=== PATIENT | female | born 1980 | race Caucasian/White ===

== ENCOUNTER 2016-08-20 14:00 | Emergency (ER) | payer OTHER ==
--- NOTE | 2016-08-20 14:59 | ED CLINICAL REPORT ---
Clinical Report - Physicians/Mid Levels [facility] [address] [place] [address] 08/20/2016 14:01 Patient: MARC COLLINS Time Seen: 14:04 Aug 20 2016. Arrived- By private vehicle. Historian- patient. CPT: ER phys charges level 3 plus (#252425). Up to 2.5 cm simple scalp, neck (#[id number]). HISTORY OF PRESENT ILLNESS Location of injuries- head. Chief Complaint: INJURY TO HEAD. The injury occurred just prior to arrival. The patient sustained a single moderate blow (metal staple gun.). Occurred at home. The patient complains of mild pain. The patient sustained a blow to the head. No neck pain or loss of consciousness. Not dazed. REVIEW OF SYSTEMS No numbness, nausea or difficulty breathing. She sustained a single small skin laceration to the scalp. All systems otherwise negative, except as recorded above. PAST HISTORY See nurses notes. Tetanus immunization status is up-to-date. ADDITIONAL NOTES The nursing notes have been reviewed. PHYSICAL EXAM Vital Signs: 08/20/2016 14:07 BP: 108/68. HR: 94. RR: 16. O2 saturation: 97%. Pain level now: 4/10. Appearance: Alert. No acute distress. Head: Vertex: mild tenderness and swelling and subcutaneous 1.0 cm laceration of the posterior aspect of the vertex (bleeding will not stop.). Eyes: Pupils equal, round and reactive to light. EOM intact. Neck: Painless ROM. Neck non-tender. Skin: Skin warm. Normal skin color. Extremities: Extremities atraumatic. Neuro: Oriented X 3. Mood/affect normal. Speech normal. No motor deficit. Normal gait. No sensory deficit. Reflexes normal. PROGRESS AND PROCEDURES Laceration Repair: Location: scalp. Length: 1 cm. Complexity: simple (local anesthesia used and sutured). Wound depth/shape- subcutaneous and linear. Wound is clean. Distal neuro/vascular/tendon status normal. Anesthesia provided using 2% lidocaine with epi. Prepped with Hibiclens. Wound explored and irrigated extensively with normal saline. Closure of skin: interrupted 4-0 (1 sutures). Post-procedure: she is stable and there are no complications. Bleeding is controlled and neuro-vascular status is intact distal to the wound. Dressing applied. Tetanus immunization up-to-date. Estimated blood loss: 1 mL. Patient/family counseled. Disposition: Discharged. Condition: stable. CLINICAL IMPRESSION Single deep laceration to the scalp.No foreign body present. Single contusion to the scalp. INSTRUCTIONS Protect wound and keep wound area clean. Change dressing twice daily. Keep wounds dry. You may wash wounds briefly, then dry. Apply neosporin twice daily. Sutures should be removed in seven days. Warnings: GENERAL WARNINGS: Return or contact your physician immediately if your condition worsens or changes unexpectedly, if not improving as expected, or if other problems arise. OTC Medications: Acetaminophen (available over the counter): take according to label instructions. Follow-up: Follow up with your doctor in one week. Call for an appointment. Reason for referral: for suture removal if the RN does not do it. Understanding of the discharge instructions verbalized by patient. Discharge instructions reviewed with and understanding was verbalized by regional vice president life sales. (Electronically signed by Michael Arce MD 08/20/2016 15:36)
--- NOTE | 2016-08-20 14:59 | ED ORDER SUMMARY ---
..... Patient: MARC COLLISN OrderSheet [facility] VisitID: [id number] [address] [place] [address] 35y, F Registration Date/Time: 08/20/2016 ORDER SHEET Weight: 58.0 kg (stated) Allergies: None GENERAL ORDERS: Dress Wounds (14:54 08/20/2016 Augustin HERNANDEZ) ([facility] 15:02 Alexis Richter) (15:41 Shahana Richter) MEDICATION ORDERS: IV FLUIDS: ORDER SHEET NOTES: [Electronically signed by Michael Arce MD (15:36 08/20/2016)] [Electronically signed by Evangelina Landa R.N. (15:41 08/20/2016)] [Electronically locked/signed by Evangelina Landa R.N. (15:41 08/20/2016)]
--- NOTE | 2016-08-20 14:59 | ED ORDER SUMMARY ---
..... Patient: MARC COLLINS OrderSheet [facility] VisitID: [id number] [address] [place] [address] 35y, F Registration Date/Time: 08/20/2016 ORDER SHEET Weight: 58.0 kg (stated) Allergies: None GENERAL ORDERS: Dress Wounds (14:54 08/20/2016 Augustin HERNANDEZ) ([facility] 15:02 Alexis Richter) (15:41 Shahana Richter) MEDICATION ORDERS: IV FLUIDS: ORDER SHEET NOTES: [Electronically signed by Michael Arce MD (15:36 08/20/2016)] [Electronically signed by Evangelina Landa R.N. (15:41 08/20/2016)] [Electronically locked/signed by Evangelina Landa R.N. (15:41 08/20/2016)]
--- NOTE | 2016-08-20 14:59 | ED NURSING NOTES ---
Clinical Report - Nurses [facility] [address] [place] [address] 08/20/2016 14:01 Patient: MARC COLLINS TRIAGE Triage time 02:04. Acuity: LEVEL 4. Chief Complaint: INJURY TO HEAD. 14:15 08/20/16. Alert. No acute distress. SEPSIS SCREEN: Sepsis Screen. Negative (no infection suspected/documented). DEBBIE COMA SCORE: [place] Coma Scale. --14:15 Evangelina Landa R.N. 14:07 08/20/16. BP: 108/68. HR: 94. RR: 16. O2 saturation: 97%. Pain level now: 07/17. --14:15 Evangelina Landa R.N. 14:31 08/20/16. --14:31 Evangelina Landa R.N. 15:12 08/20/16. Temp: 97.8 F. --15:12 Evangelina Landa R.N. Weight: 58 kg stated. Height/Length: 61 inches Per Patient. BMI: 24.2. --14:15 Evangelina Landa R.N. Medications None. --15:11 Evangelina Landa R.N. Allergies None. --15:11 Evangelina Landa R.N. History Arrived by private vehicle. Historian: patient. Accompanied by spouse. Primary physician (No PCP). This occurred just prior to arrival. She sustained a laceration. Mechanism of injury: a blow. She has had neck pain. ( Patient reports that she has persistent neck pain, and "it's hard to tell if that's why my neck hurts". She reports pain "where my head and neck meet."). 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 PAST MEDICAL HX: Tetanus status: up-to-date. Immunizations: up-to-date. The patient has had a hysterectomy. Currently . SOCIAL HX: Never smoker. No alcohol use or drug use. FALL RISK ASSESSMENT: Fall risk assessment completed. No fall risk identified. NUTRITIONAL RISK ASSESSMENT: The nutritional risk assessment revealed no deficiencies. FUNCTIONAL ASSESSMENT: Functional assessment: no impairments noted. LEARNING NEEDS ASSESSMENT: The learning needs assessment revealed no barriers. SKIN INTEGRITY ASSESSMENT: Skin integrity risk assessment completed. No skin integrity risk identified. --14:15 Evangelina Landa R.N. ( Patient reports a staple gun fell on her head while she was working on her house.). --14:31 Evangelina Landa R.N. Interventions ID band on patient. To treatment room. --14:15 Evangelina Landa R.N. PHYSICAL ASSESSMENT 14:17 08/20/16. Ambulatory to room. GENERAL / NEURO / PSYCH: Alert. Oriented X 4. Appears in no acute distress. HEENT: Head: tenderness and laceration present in the left parietal area. Left parietal area: superficial 0.5 cm laceration with controlled bleeding. Pupils equal, round and reactive to light. EOM intact. Voice within normal limits. No swelling of head. No dental injury noted. Mucous membranes are pink. RESPIRATORY: Respirations not labored. CVS: Capillary refill less than 2 seconds. BACK: ROM normal to the neck and back. No vertebral point tenderness. SKIN: Skin is warm and dry. --14:18 Evangelina Landa R.N. NURSING PROGRESS NOTES Two patient identifiers checked. Call light placed in reach. Bed placed in lowest position. Brakes of bed on. Patient ready for evaluation- chart flagged and notification provided. --14:18 Evangelina Landa R.N. 15:08 08/20/16. --15:08 Evangelina Landa R.N. 15:08/20/16. BP: 98/67. HR: 84. RR: 16. O2 saturation: 99%. Temp: deferred. Pain level now: 06/16. --15:08 Evangelina Landa R.N. DISPOSITION / DISCHARGE 15:08/20/16. No learning barriers present. Discharge instructions provided and reviewed with the patient and spouse. Reviewed warnings. Treatments reviewed. Patient and spouse verbalized understanding. Written instructions provided in Romanian. The patient was discharged by the physician. She was discharged home and accompanied by spouse. She left the Emergency Department ambulatory and via private vehicle. Spouse driving. --15:09 Evangelina Landa R.N. 15:06 08/20/16. BP: 98/67. HR: 84. RR: 16. O2 saturation: 99%. Temp: deferred. Pain level now: 06/16. --15:09 Evangelina Landa R.N. Locked/Released at 08/20/2016 15:41 by Evangelina Landa R.N.
--- NOTE | 2016-08-20 14:59 | ED NURSING NOTES ---
Clinical Report - Nurses [facility] [address] [place] [address] 08/20/2016 14:01 Patient: MARC COLLINS TRIAGE Triage time 02:04. Acuity: LEVEL 4. Chief Complaint: INJURY TO HEAD. 14:15 08/20/16. Alert. No acute distress. SEPSIS SCREEN: Sepsis Screen. Negative (no infection suspected/documented). DEBBIE COMA SCORE: [place] Coma Scale. --14:15 Evangelina Landa R.N. 14:07 08/20/16. BP: 108/68. HR: 94. RR: 16. O2 saturation: 97%. Pain level now: 07/17. --14:15 Evangelina Landa R.N. 14:31 08/20/16. --14:31 Evangelina Landa R.N. 15:12 08/20/16. Temp: 97.8 F. --15:12 Evangelina Landa R.N. Weight: 58 kg stated. Height/Length: 61 inches Per Patient. BMI: 24.2. --14:15 Evangelina Landa R.N. Medications None. --15:11 Evangelina Landa R.N. Allergies None. --15:11 Evangelina Landa R.N. History Arrived by private vehicle. Historian: patient. Accompanied by spouse. Primary physician (No PCP). This occurred just prior to arrival. She sustained a laceration. Mechanism of injury: a blow. She has had neck pain. ( Patient reports that she has persistent neck pain, and "it's hard to tell if that's why my neck hurts". She reports pain "where my head and neck meet."). 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 PAST MEDICAL HX: Tetanus status: up-to-date. Immunizations: up-to-date. The patient has had a hysterectomy. Currently . SOCIAL HX: Never smoker. No alcohol use or drug use. FALL RISK ASSESSMENT: Fall risk assessment completed. No fall risk identified. NUTRITIONAL RISK ASSESSMENT: The nutritional risk assessment revealed no deficiencies. FUNCTIONAL ASSESSMENT: Functional assessment: no impairments noted. LEARNING NEEDS ASSESSMENT: The learning needs assessment revealed no barriers. SKIN INTEGRITY ASSESSMENT: Skin integrity risk assessment completed. No skin integrity risk identified. --14:15 Evangelina Landa R.N. ( Patient reports a staple gun fell on her head while she was working on her house.). --14:31 Evangelina Landa R.N. Interventions ID band on patient. To treatment room. --14:15 Evangelina Landa R.N. PHYSICAL ASSESSMENT 14:17 08/20/16. Ambulatory to room. GENERAL / NEURO / PSYCH: Alert. Oriented X 4. Appears in no acute distress. HEENT: Head: tenderness and laceration present in the left parietal area. Left parietal area: superficial 0.5 cm laceration with controlled bleeding. Pupils equal, round and reactive to light. EOM intact. Voice within normal limits. No swelling of head. No dental injury noted. Mucous membranes are pink. RESPIRATORY: Respirations not labored. CVS: Capillary refill less than 2 seconds. BACK: ROM normal to the neck and back. No vertebral point tenderness. SKIN: Skin is warm and dry. --14:18 Evangelina Landa R.N. NURSING PROGRESS NOTES Two patient identifiers checked. Call light placed in reach. Bed placed in lowest position. Brakes of bed on. Patient ready for evaluation- chart flagged and notification provided. --14:18 Evangelina Landa R.N. 15:08 08/20/16. --15:08 Evangelina Landa R.N. 15:08/20/16. BP: 98/67. HR: 84. RR: 16. O2 saturation: 99%. Temp: deferred. Pain level now: 06/16. --15:08 Evangelina Landa R.N. DISPOSITION / DISCHARGE 15:08/20/16. No learning barriers present. Discharge instructions provided and reviewed with the patient and spouse. Reviewed warnings. Treatments reviewed. Patient and spouse verbalized understanding. Written instructions provided in Latvian. The patient was discharged by the physician. She was discharged home and accompanied by spouse. She left the Emergency Department ambulatory and via private vehicle. Spouse driving. --15:09 Evangelina Landa R.N. 15:06 08/20/16. BP: 98/67. HR: 84. RR: 16. O2 saturation: 99%. Temp: deferred. Pain level now: 06/16. --15:09 Evangelina Landa R.N. Locked/Released at 08/20/2016 15:41 by Evangelina Landa R.N.
--- NOTE | 2016-08-20 14:59 | ED CLINICAL REPORT ---
Clinical Report - Physicians/Mid Levels [facility] [address] [place] [address] 08/20/2016 14:01 Patient: MARC COLLINS Time Seen: 14:04 Aug 20 2016. Arrived- By private vehicle. Historian- patient. CPT: ER phys charges level 3 plus (#803500). Up to 2.5 cm simple scalp, neck (#[id number]). HISTORY OF PRESENT ILLNESS Location of injuries- head. Chief Complaint: INJURY TO HEAD. The injury occurred just prior to arrival. The patient sustained a single moderate blow (metal staple gun.). Occurred at home. The patient complains of mild pain. The patient sustained a blow to the head. No neck pain or loss of consciousness. Not dazed. REVIEW OF SYSTEMS No numbness, nausea or difficulty breathing. She sustained a single small skin laceration to the scalp. All systems otherwise negative, except as recorded above. PAST HISTORY See nurses notes. Tetanus immunization status is up-to-date. ADDITIONAL NOTES The nursing notes have been reviewed. PHYSICAL EXAM Vital Signs: 08/20/2016 14:07 BP: 108/68. HR: 94. RR: 16. O2 saturation: 97%. Pain level now: 4/10. Appearance: Alert. No acute distress. Head: Vertex: mild tenderness and swelling and subcutaneous 1.0 cm laceration of the posterior aspect of the vertex (bleeding will not stop.). Eyes: Pupils equal, round and reactive to light. EOM intact. Neck: Painless ROM. Neck non-tender. Skin: Skin warm. Normal skin color. Extremities: Extremities atraumatic. Neuro: Oriented X 3. Mood/affect normal. Speech normal. No motor deficit. Normal gait. No sensory deficit. Reflexes normal. PROGRESS AND PROCEDURES Laceration Repair: Location: scalp. Length: 1 cm. Complexity: simple (local anesthesia used and sutured). Wound depth/shape- subcutaneous and linear. Wound is clean. Distal neuro/vascular/tendon status normal. Anesthesia provided using 2% lidocaine with epi. Prepped with Hibiclens. Wound explored and irrigated extensively with normal saline. Closure of skin: interrupted 4-0 (1 sutures). Post-procedure: she is stable and there are no complications. Bleeding is controlled and neuro-vascular status is intact distal to the wound. Dressing applied. Tetanus immunization up-to-date. Estimated blood loss: 1 mL. Patient/family counseled. Disposition: Discharged. Condition: stable. CLINICAL IMPRESSION Single deep laceration to the scalp.No foreign body present. Single contusion to the scalp. INSTRUCTIONS Protect wound and keep wound area clean. Change dressing twice daily. Keep wounds dry. You may wash wounds briefly, then dry. Apply neosporin twice daily. Sutures should be removed in seven days. Warnings: GENERAL WARNINGS: Return or contact your physician immediately if your condition worsens or changes unexpectedly, if not improving as expected, or if other problems arise. OTC Medications: Acetaminophen (available over the counter): take according to label instructions. Follow-up: Follow up with your doctor in one week. Call for an appointment. Reason for referral: for suture removal if the RN does not do it. Understanding of the discharge instructions verbalized by patient. Discharge instructions reviewed with and understanding was verbalized by mmd unit teacher. (Electronically signed by Michael Arce MD 08/20/2016 15:36)
--- NOTE | 2016-08-20 15:42 | ED DISCHARGE INSTRUCTIONS ---
Patient: MARC COLLINS General Instructions [facility] VisitID: [id number] [place] [address] 35y, F Registration Date/Time: 08/20/2016 Single deep laceration to the scalp.No foreign body present. Single contusion to the scalp. INSTRUCTIONS Protect wound and keep wound area clean. Change dressing twice daily. Keep wounds dry. You may wash wounds briefly, then dry. Apply neosporin twice daily. Sutures should be removed in seven days. Warnings: GENERAL WARNINGS: Return or contact your physician immediately if your condition worsens or changes unexpectedly, if not improving as expected, or if other problems arise. OTC Medications: Acetaminophen (available over the counter): take according to label instructions. Follow-up: Follow up with your doctor in one week. Call for an appointment. Reason for referral: for suture removal if the RN does not do it. Understanding of the discharge instructions verbalized by patient. Discharge instructions reviewed with and understanding was verbalized by concrete buster operator. ADDITIONAL INFORMATION Laceration (All Closures) Alaceration is a cut through the skin. This will usually require stitches (sutures) or hussain if it is deep. Minor cuts may be treated with a surgical tape closure orskin glue. Home care The following guidelines will help you care for your laceration at home: Extremity, face, or trunk wounds Keep the wound clean and dry. If a bandage was applied and it becomes wet or dirty, replace it. Otherwise, leave it in place for the first 24 hours. If stitches or hussain were used, clean the wound daily. After removing the bandage, wash the area with soap and water. Use a wet cotton swab to loosen and remove any blood or crust that forms. The doctor may prescribe an antibiotic cream or ointment to prevent infection. Do not stop taking this medication until you have finished the prescribed course or the doctor tells you to stop. The doctor may also prescribe medications for pain. Follow the doctors instructions for taking these medications. You may remove the bandage to shower as usual after the first 24 hours, but do not soak the area in water (no swimming) until the stitches or hussain are removed. If surgical tape was used, keep the area clean and dry. If it becomes wet, blot it dry with a towel. If skin glue was used, do not scratch, rub, or pick at the adhesive film. Do not place tape directly over the film. Do not apply liquid, ointment, or creams to the wound while the film is in place. Do not clean the wound with peroxide and do not apply ointments. Avoid activities that cause heavy sweating until the film has fallen off. Protect the wound from prolonged exposure to sunlight or tanning lamps. You may shower as usual but do not soak the wound in water (no baths or swimming). The film will fall off by itself in 510 days. Scalp wounds During the first two days, you may carefully rinse your hair in the shower to remove blood, glass or dirt particles. After two days, you may shower and shampoo your hair normally. Do not soak your scalp in the tub or go swimming until the stitches or hussain have been removed. Talk with your doctor before applying any antibiotic ointment to the wound. Mouth wounds Eat soft foods to reduce pain. If the cut is inside of your mouth, clean by rinsing after each meal and at bedtime with a mixture of equal parts water and hydrogen peroxide (do not swallow!). Or, you can use a cotton swab to directly apply hydrogen peroxide onto the cut. Mouth wounds can be painful when eating. You may use an [id number] local numbing solution for pain relief. If this is not available, you may use any numbing solution for teething babies. You may apply this directly to the sores with a cotton-tip swab or with your finger. Follow-up care Follow up with your health care provider. Most skin wounds heal within ten days. Mouth and facial wounds heal within five days. However, even with proper treatment, a wound infection may sometimes occur. Therefore, you should check the wound daily for signs of infection listed below. Stitches should be removed from the face within five days; stitches and hussain should be removed from other parts of the body within 714 days. If dissolving stitches were used in the mouth, these will fall out or dissolve without the need for removal. If tape closures were used, remove them yourself if they have not fallen off after 7 days. Ifskin glue was used, the film will fall off by itself in 510 days. When to seek medical care Get prompt medical attention if any of these occur: Bleeding not controlled by direct pressure Signs of infection, including increasing pain in the wound, increasing wound redness or swelling, or pus coming from the wound Fever of 100.4F (38C) or higher, or as directed by your health care provider Stitches or hussain come apart or fall out or surgical tape falls off before 7 days Wound edges re-open Laceration, Scalp (Sutures Or Hussain) A laceration is a cut through the skin. This will require stitches (sutures) or hussain if it is deep. Home care The following guidelines will help you care for your laceration at home: During the first two days you may carefully rinse your hair in the shower to remove blood, glass or dirt particles. After two days you may shower and shampoo your hair normally. Have someone help you clean your wound every day: In the shower, wash the area with soap and water. Use a wet cotton swab to loosen and remove any blood or crust that forms. After cleaning, keep the wound clean and dry. Talk with your doctor before applying any antibiotic ointment to the wound. Reapply a fresh bandage. Do not put your head under water (no swimming) until the stitches or hussain have been removed. The doctor may prescribe an antibiotic cream or ointment to prevent infection. Do not stop taking this medication until you have finished the prescribed course or the doctor tells you to stop. The doctor may also prescribe medications for pain. Follow the doctors instructions for taking these medications. If you have chronic liver or kidney disease or ever had a stomach ulcer or GI bleeding, talk with your doctor before using these medicines. Follow-up care Follow up with your health care provider. Most scalp wounds heal within seven days. However, an infection can sometimes occur. Check the wound daily for the warning signs listed below. Stitches or hussain should be removed from the scalp in about 57 days. When to seek medical care Get prompt medical attention if any of these occur: Increasing pain in the wound Redness, swelling, or pus coming from the wound Fever of 100.4F (38C) or higher, or as directed by your health care provider If stitches or hussain come apart or fall out before your next appointment If the wound edges re-open Bleeding not controlled by direct pressure Scalp Contusion [No Wake-Up] A scalp contusion is a bruise with swelling and sometimes bleeding under the skin. The swelling should start to go down within two days. Although there is no sign of a serious injury at this time, symptoms may appear later. These could be a sign of a more serious problem (bruising or bleeding in the brain). Therefore, watch for the warning signs below. Home Care: During the next 24 hours someone must stay with you to check for the signs below. It is not necessary to stay awake or be awakened during the night. If you have swelling of the face or scalp, apply an ice pack (ice cubes in a plastic bag, wrapped in a towel) for 20 minutes. Do this every 1-2 hours until the swelling starts to go down. You may use acetaminophen (Tylenol) or ibuprofen (Motrin, Advil) to control pain, unless another pain medicine was prescribed. [ NOTE : If you have chronic liver or kidney disease or ever had a stomach ulcer or GI bleeding, talk with your doctor before using these medicines.] For the next 24 hours: Do not take alcohol, sedatives or medicines that make you sleepy. Do not drive or operate machinery. Avoid strenuous activities. No lifting or straining. If you have had any symptoms of a concussion today (nausea, vomiting, dizziness, confusion, headache, memory loss or if you were knocked out), do not return to sports or any activity that could result in another head injury until all symptoms are gone and you have been cleared by your doctor. A second head injury before fully recovering from the first one can lead to serious brain injury. Follow Up with your doctor if symptoms are not improving after 24 hours, or as directed. [NOTE: Any X-rays or CT scans taken will be reviewed by a radiologist. You will be notified of any new findings that may affect your care.] Get Prompt Medical Attention if any of the following occur: Repeated vomiting Severe or worsening headache or dizziness Unusual drowsiness, or unable to awaken as usual Confusion or change in behavior or speech, memory loss, blurred vision Convulsion (seizure) Increasing scalp or face swelling Redness, warmth or pus from the swollen area Fluid drainage or bleeding from the nose or ears Fever of 100.4F(38C) or higher, or as directed by your healthcare provider Bandage Change If the bandage becomes wet or dirty, replace it. Otherwise, leave it in place for the first 24 hours. Then once a day: After removing the bandage, wash the area with soap and water. Use a wet cotton swab to loosen and remove any blood or crust that forms on the wound. After cleaning, apply a thin layer of antibiotic ointment or cream. Reapply the bandage. You may shower as usual after the first 24 hours. If the bandage is on an arm or leg, cover it with a plastic bag rubber banded at both ends before showering. No tub baths or swimming until the bandage is removed and the wound healed (at least 7 days). Laceration, Scalp (Sutures Or Hussain) A laceration is a cut through the skin. This will require stitches (sutures) or hussain if it is deep. Home care The following guidelines will help you care for your laceration at home: During the first two days you may carefully rinse your hair in the shower to remove blood, glass or dirt particles. After two days you may shower and shampoo your hair normally. Have someone help you clean your wound every day: In the shower, wash the area with soap and water. Use a wet cotton swab to loosen and remove any blood or crust that forms. After cleaning, keep the wound clean and dry. Talk with your doctor before applying any antibiotic ointment to the wound. Reapply a fresh bandage. Do not put your head under water (no swimming) until the stitches or hussain have been removed. The doctor may prescribe an antibiotic cream or ointment to prevent infection. Do not stop taking this medication until you have finished the prescribed course or the doctor tells you to stop. The doctor may also prescribe medications for pain. Follow the doctors instructions for taking these medications. If you have chronic liver or kidney disease or ever had a stomach ulcer or GI bleeding, talk with your doctor before using these medicines. Follow-up care Follow up with your health care provider. Most scalp wounds heal within seven days. However, an infection can sometimes occur. Check the wound daily for the warning signs listed below. Stitches or hussain should be removed from the scalp in about 57 days. When to seek medical care Get prompt medical attention if any of these occur: Increasing pain in the wound Redness, swelling, or pus coming from the wound Fever of 100.4F (38C) or higher, or as directed by your health care provider If stitches or hussain come apart or fall out before your next appointment If the wound edges re-open Bleeding not controlled by direct pressure You have been given the following additional information: Laceration, All Laceration, Scalp Scalp Contusion, No Wake Up Dressing Change Laceration, Scalp (Electronically signed by Michael Arce MD 08/20/2016 15:36)
--- NOTE | 2016-08-20 15:42 | ED MED RECONCILIATION SUMMARY ---
Patient: MARC COLLINS Medication Reconciliation Report [facility] VisitID: [id number] [address] [place] [address] 35y, F Registration Date/Time: 08/20/2016 Weight: 58.0 kg Height/Length: 61 in. BMI: 24.2 ALLERGIES: None The patient's Home Medications are listed below: NONE. The source(s) of the original Home Medication information: Not obtained. The following Medications were given to the patient in the Emergency Department: None. The following Medications were prescribed to the patient: Acetaminophen (available over the counter): take according to label instructions. -- Michael Arce MD
--- NOTE | 2016-08-20 15:42 | ED MED RECONCILIATION SUMMARY ---
Patient: MARC COLLINS Medication Reconciliation Report [facility] VisitID: [id number] [address] [place] [address] 35y, F Registration Date/Time: 08/20/2016 Weight: 58.0 kg Height/Length: 61 in. BMI: 24.2 ALLERGIES: None The patient's Home Medications are listed below: NONE. The source(s) of the original Home Medication information: Not obtained. The following Medications were given to the patient in the Emergency Department: None. The following Medications were prescribed to the patient: Acetaminophen (available over the counter): take according to label instructions. -- Michael Arce MD
--- NOTE | 2016-08-20 15:42 | ED MAR SUMMARY ---
..... Medication Administration Record [facility] [address] [place], [place] [id number] Patient: MARC COLLINS Visit ID: [id number] 35y, F Weight: 58.0 kg Height/Length: 61 in BMI: 24.2 ALLERGIES: None
--- NOTE | 2016-08-20 15:42 | ED MAR SUMMARY ---
..... Medication Administration Record [facility] [address] [place], [place] [id number] Patient: MARC COLLINS Visit ID: [id number] 35y, F Weight: 58.0 kg Height/Length: 61 in BMI: 24.2 ALLERGIES: None
== END 2016-08-20 15:10 | disposition home or self-care (01) ==
LOC: ED SRH 14:00
DX: S01.01XA Laceration without foreign body of scalp, initial encounter (principal); W29.4XXA Contact with nail gun, initial encounter; Y93.9 Activity, unspecified; Y92.009 Unspecified place in unspecified non-institutional (private) residence as the place of occurrence of the external cause; Y99.9 Unspecified external cause status